=== PATIENT | female | born 1995 | race African-American/Black ===

== ENCOUNTER → 2016-05-07 | Day surgery (SDC) | payer OTHER ==
[~2016-05-07] VITALS: Ht 162.6 cm; Wt 81.6 kg
--- NOTE | 2016-05-07 12:34 | Operative Report ---
Operative/Inv Procedure Report Surgery Date: 05/07/16 Name of Procedure: Excision left breast mass Pre-Operative Diagnosis: Left fibroadenoma Post-Operative Diagnosis: Same Estimated Blood Loss: scant Surgeon/Ch[employer]man [employer] Founder: MIS DELGADO MD Anesthesia: local monitored anesthesi Specimens: Left breast mass Operative/Procedure Note Note: Patient brought to the operating room on 05/07/2016 with an enlarging left breast fibroadenoma. She was given 2 g of Ancef and the left breast was prepped and draped in sterile fashion using ChloraPrep. Local anesthesia 1% lidocaine mixed half percent Marcaine was given and a curvilinear incision was made in the upper periareolar region. The palpable mass was identified and the breast tissues dissected down to the mass. Mass was excised from the surrounding breast tissue using electrocautery. Mass was well-circumscribed. The mass was marked for orientation using margin map. Hemostasis was adequate. The breast tissue was approximated using interrupted Vicryl sutures, and the skin was closed using a running Monocryl subcuticular stitch. Steri-Strips and sterile dressings were applied and the patient was transferred to the recovery room in satisfactory condition having tolerated the procedure well.
== END ==
LOC: STS 02:43
DX: D24.2 Benign neoplasm of left breast (principal)
CPT/HCPCS: 81025; 88307; J0131; J0690; J1885; J2250; J2405